=== PATIENT | female | born 1930 | race Caucasian/White ===

== ENCOUNTER 2016-08-31 17:59 | Emergency (ER) | payer OTHER, BC ==
[~2016-08-31] VITALS: Ht 167.6 cm; Wt 94.7 kg
[~2016-08-31 17:59] MED LIST: AMLODIPINE BESY10 MG PO; ASPIR 8181 M1 PO; ATENOLOL25 MG PO; DAILY VITAMIN1 EAC8 PO; FUROSEMIDE80 MG PO; GABAPENTIN800 MG PO; LEVEMIR FL100 UNIT/1 SC; LIDODERM 5% P1 PATCH TD; LUMIGAN 0.50 DROP/22 BOTH EYES; NITROSTAT0.4 MG SL; NOVOLOG PE100 UNITS/ SC; PRILOSEC20 MG PO; RAMIPRIL1.25 MG PO; TRAMADOL HCL50 MG PO; [UNRECOGNIZED DRUG - OTHER] PO
[2016-08-31 21:05] VITALS: BP 169/87
== END 2016-08-31 21:27 | disposition home or self-care (01) ==
LOC: EME 17:59
DX: S50.12XA Contusion of left forearm, initial encounter (principal); V49.40XA Driver injured in collision with unspecified motor vehicles in traffic accident, initial encounter
CPT/HCPCS: 73090; 99281; 99285